=== PATIENT | female | born 1955 | race Caucasian/White ===

== ENCOUNTER → 2017-09-04 | Day surgery (SDC) | payer OTHER ==
[~2017-09-04] VITALS: Ht 160 cm; Wt 59.0 kg
[~2017-09-04] MED LIST: ATORVASTATIN CA10 M1 PO; DIOVAN160 MG PO; MULTIVITAMINS1 EAC9 PO; VITAMIN C500 M9 PO; VITAMIN D1000 UNIT PO; XELJANZ5 M1 PO
--- NOTE | 2017-09-04 08:34 | Operative Report ---
Operative/Inv Procedure Report Surgery Date: 09/04/17 Name of Procedure: Hemorrhoidectomy Pre-Operative Diagnosis: Hemorrhoids with grade 4 prolapse Post-Operative Diagnosis: Same Estimated Blood Loss: scant Surgeon/Crotch Piece Baster: Omega Grubbs MD Anesthesia: local monitored anesthesi IV Fluids: 500 mL crystalloid Specimens: Hemorrhoids Complications: None Condition: Good in recovery room Operative Indication: Prolapse and pain Operative/Procedure Note Note: After informed consent was obtained, the patient was placed on the operating room table in the prone jackknife position. After successful induction of deep IV sedation, the operative area was infiltrated subcutaneously with approximately 8 mL of a combined 1/2% Marcaine solution and 1% lidocaine solution with 1-100,000 epinephrine. An additional 10 mL of the same solution was then injected deeply into the surrounding musculature. With good local anesthesia in place, the anus and perianal area were examined using a large Hardy Lewis retractor. Of note was a prolapsing tunnel and external hemorrhoidal complex in the right anterior position. A redundant external hemorrhoid was also noticed in the left posterior anal canal and perianal skin. Attention was first turned to the large prolapsing complex anteriorly. This complex was grasped with an Allis clamp and retracted outward. Dissection using the electrocautery was begun from external to internal dissecting the entire complex off down to a subtly based mucosal pedicle. Care was taken to avoid any harm to the sphincter mechanism. A 2-0 Vicryl suture ligature was placed around the base of the mucosal pedicle. The excess hemorrhoidal tissue was excised and sent to pathology for permanent section. The internal or mucosal portion of this resulting wound was closed using running interlocking 2-0 Vicryl suture material. The external portion was left open for drainage. A second was done the left posterior external hemorrhoid alone the electrocautery. This wound was not closed hemostasis of both open wounds was obtained using the electrocautery. Upon completion of both aspects of the procedure hemostasis was intact and the anal orifice was patent. Fresh bacitracin dressing was applied and the patient was taken to recovery in satisfactory condition. Findings: See above procedure note Discharge Disposition: Same Day Admissions
== END ==
LOC: STS 02:09 → EDBD 07:00
DX: K64.3 Fourth degree hemorrhoids (principal); I10 Essential (primary) hypertension
CPT/HCPCS: 93005; 93010; J1885; J2250; J3490